=== PATIENT | male | born 1970 | race Caucasian/White ===

== ENCOUNTER → 2016-08-23 | Outpatient (REF) | payer BC ==
[2016-08-25 00:06] LABS: Lyme Disease IgG/IgM Antibodie <0.91 ISR (0.00-0.90); Lyme Disease IgM Ab Quantitati <0.80 index (0.00-0.79)
== END ==
LOC: M SFHCPLAZ 09:59
PROVIDERS: ATTEND Family Medicine
DX: M25.50 Pain in unspecified joint (principal)

== ENCOUNTER → 2022-04-20 | Outpatient (CLI) | payer OTHER | LOC: M PLARAD 09:55 | PROVIDERS: ATTEND Internal Medicine | DX: M51.26 Other intervertebral disc displacement, lumbar region (principal); M48.061 Spinal stenosis, lumbar region without neurogenic claudication; M54.16 Radiculopathy, lumbar region ==

== ENCOUNTER → 2022-10-16 | Outpatient (CLI) | payer OTHER ==
[~2022-10-16] MED LIST: CHOL100013 PO; FERR325T81 PO; MULT-90 PO; OMEP-173 PO; ROSU20TA61 PO; TRAM50TA2 PO
[2022-10-16 09:26] LABS: PLATELET COUNT, AUTOMATED 316 10^3/uL (150-450)
[2022-10-16 09:47] LABS: INR 0.93; PARTIAL THROMBOPLASTIN TIME 29.2 SECONDS (24.8-34.2); PROTHROMBIN TIME 12.7 SECONDS (12.5-14.5)
[2022-10-16 09:50] LABS: COLLAGEN EPINEPHRINE 94 SECONDS (74-162)
== END ==
LOC: M LAB 08:57
PROVIDERS: ATTEND Physician Assistant
DX: Z01.818 Encounter for other preprocedural examination (principal)

== ENCOUNTER 2022-10-24 10:40 | Day surgery (SDC) | payer OTHER ==
[~2022-10-24] VITALS: Ht 177.8 cm; Wt 82.7 kg
[~2022-10-24 10:40] MED LIST changes: +NS 1,000 ML IV ONE
[2022-10-24] MEDS ORDERED: OMEP-173 PO (11:12)
[2022-10-24] MEDS ORDERED: propofoL 200 MG/20 ML VIAL As Ordered ONE ×3 (11:57→11:59)
[2022-10-24] MEDS ORDERED: LIDOCAINE 2% 100MG/5ML SDV (FOR ANES.) As Ordered ONE (12:19)
[2022-10-24] MEDS ORDERED: fentaNYL 100 MCG/2 ML INJECTION As Ordered ONE (12:20)
[2022-10-24 12:54] VITALS: TEMP 98.9
[2022-10-24 13:15] VITALS: BP 135/92; O2SAT 100
== END 2022-10-24 13:25 | disposition home or self-care (01) ==
LOC: M OPP 10:40
PROVIDERS: ATTEND Internal Medicine Gastroenterology
DX: Z12.11 Encounter for screening for malignant neoplasm of colon (principal); K44.9 Diaphragmatic hernia without obstruction or gangrene; K21.00 Gastro-esophageal reflux disease with esophagitis, without bleeding; Z79.02 Long term (current) use of antithrombotics/antiplatelets; Z79.891 Long term (current) use of opiate analgesic
CPT/HCPCS: 43239; 45378; 88305; J3010

== ENCOUNTER → 2023-03-18 | Outpatient (REF) | payer OTHER ==
[~2023-03-18] MED LIST changes: -NS 1,000 ML IV ONE
== END ==
LOC: M LAB REF 08:34
PROVIDERS: ATTEND Surgery
DX: L82.1 Other seborrheic keratosis (principal); D22.4 Melanocytic nevi of scalp and neck; L72.0 Epidermal cyst